=== PATIENT | male | born 1965 | race Caucasian/White ===

== ENCOUNTER 2019-04-03 06:28 | Inpatient (IN) | payer BC ==
[~2019-04-03] VITALS: Ht 182.9 cm; Wt 145.1 kg
--- OUTSIDE RECORDS SUMMARY | 2019-04-03 06:32 | XMS REPORT | Summary of Care ---
Author Author [facility] - Health Organization [facility] - Health Address Unknown Phone Unavailable Care Team Providers Care Pipe [address] Service Name Role Phone Eusebio Burch Catrachita PCP Encounter Details Care Team Description Date Type Department Doctor Unassigned, [place] [address] [place] [address] 03/19/2019 Orders Only [facility] [address] [place] [address] Allergies Not on Filedocumented as of this encounter (statuses as of 03/19/2019) Medications Not on filedocumented as of this encounter (statuses as of 03/19/2019) Active Problems Not on filedocumented as of this encounter (statuses as of 03/19/2019) Social History Date Tobacco Use Types Packs/Day Years Used Never Assessed Sex Assigned at Date Recorded Not on file Industry Job Start Date Occupation Not on file Not on file Not on file Travel End Travel History Travel Start No recent travel history available. documented as of this encounter Last Filed Vital Signs Not on filedocumented in this encounter Plan of Treatment Care Team Description Date Type Specialty Latosha Sullivan MD [address] [place] [id number] Arrived 03/19/2019 Office Visit Endocrinology Diabetes & Metabolism Health Maintenance Due Date Last Done Comments HEPATITIS C (HCV) SCREEN 1965 DTaP,Tdap,and Td Vaccines 1984 (1 - Tdap) COLONOSCOPY 2015 Zoster Recombinant 2015 Vaccine (SHINGRIX) (1 of 2) INFLUENZA VACCINE (#1) 2019 PNEUMOCOCCAL 0-64 YEARS Aged Out No longer eligible based COMBINED SERIES on patient's age to complete this topic documented as of this encounter Procedures Comments Procedure Name Priority Date/Time Associated Diagnosis CONSENT/REFUSAL FOR Routine 03/19/2019 DIAGNOSIS AND TREATMENT 1:51 PM CDT ASSIGNMENT OF BENEFITS Routine 03/19/2019 1:51 PM CDT documented in this encounter Results Not on filedocumented in this encounter Insurance Type Payer Benefit Subscriber ID Effective Phone Address Plan / Dates Group PPO/POS BC[place] OF [place] BCBS OF [id number] 2013-P [phone] [facility] - [facility] [id number] OUT OF [facility] [id number] documented as of this encounter
--- OUTSIDE RECORDS SUMMARY | 2019-04-03 06:32 | XMS REPORT | Summary of Care ---
Author Author [facility] - Health Organization [facility] - Health Address Unknown Phone Unavailable Care Team Providers Care Lead Ramp Agent Name Role Phone Eusebio Burch PCP Reason for Visit * Reason Comments Forms [facility] Encounter Details Care Team Description Date Type Department Latosha Sullivan MD [address] [place] [phone] Forms ([email or web address]) 03/20/2019 Telephone [facility], [address] [phone] Allergies No Known Allergiesdocumented as of this encounter (statuses as of 03/20/2019) Medications End Date Status Medication Sig Dispensed Refills Start Date Active blood sugar diagnostic Use as 0 (FREESTYLE TEST STRIPS IN instructed 5 VITRO) Active clotrimazole 1 % topical Apply q12 hrs 0 cream On rash 5 Active TB syringe 1 ml (B-D Use as 0 SYRINGE SLIP TIP 1CC) 1 isntructed 5 mL injection Active insulin degludec (TRESIBA inject 60 20 Syringe 1 FLEXTOUCH U-200) 200 Units under 9 unit/mL (3 mL) the skin at InPnIndications: Type 2 bedtime. diabetes mellitus with hyperglycemia, with long-term current use of insulin Active insulin aspart U-100 inject 20 20 Syringe 1 (NOVOLOG FLEXPEN U-100 Units under 9 INSULIN) 100 unit/mL (3 the skin 3 mL) injectionIndications: (three) times Type 2 diabetes mellitus daily before with hyperglycemia, with meals. long-term current use of insulin Active Fenofibrate 160 mg Take 1 tablet 90 tablet 1 tabletIndications: Mixed by mouth at 9 hyperlipidemia bedtime. documented as of this encounter (statuses as of 03/20/2019) Active Problems Not on filedocumented as of this encounter (statuses as of 03/20/2019) Social History Date Tobacco Use Types Packs/Day Years Used Current Every Day Smoker Smokeless Tobacco: Never Used Comments: VAPE Drinks/Week oz/Week Comments Alcohol Use Not Currently Sex Assigned at Date Recorded Not on file Industry Job Start Date Occupation Not on file Not on file Not on file Travel End Travel History Travel Start No recent travel history available. documented as of this encounter Last Filed Vital Signs Not on filedocumented in this encounter Plan of Treatment Health Maintenance Due Date Last Done Comments HEPATITIS C (HCV) SCREEN 1965 PNEUMOCOCCAL 0-64 YEARS 1971 COMBINED SERIES (1 of 1 - PPSV23) CREATININE (SERUM) 1975 EYE EXAM 1975 LDL-C 1975 URINE MICROALBUMIN 1975 FOOT EXAM 1983 DTaP,Tdap,and Td Vaccines 1984 (1 - Tdap) COLONOSCOPY 2015 Zoster Recombinant 2015 Vaccine (SHINGRIX) (1 of 2) INFLUENZA VACCINE (#1) 2019 09/04/2012 HgA1C 09/19/2019 03/19/2019 documented as of this encounter Results Not on filedocumented in this encounter Insurance Type Payer Benefit Subscriber ID Effective Phone Address Plan / Dates Group PPO/POS BCBS OF [place] BCBS OF [id number] 2013-P [phone] P O [facility] [id number] OUT OF [facility] [id number] documented as of this encounter
--- OUTSIDE RECORDS SUMMARY | 2019-04-03 06:32 | XMS REPORT | Summary of Care ---
Author Author [facility] - Health Organization [facility] - Health Address Unknown Phone Unavailable Care Team Providers Care Supervisor Record Press Name Role Phone Eusebio Burch PCP Reason for Visit * Reason Comments Other Encounter Details Care Team Description Date Type Department Latosha Sullivan MD [address] [place] [address] [phone] Draw, [facility] Lab Type 2 diabetes mellitus with hyperglycemia, with long-term current use of insulin 03/19/2019 Online Marketing Coordinator [facility] Clinical Visit Laboratory, [address] [phone] Allergies No Known Allergiesdocumented as of this encounter (statuses as of 03/19/2019) Medications End Date Status Medication Sig Dispensed [...] filedocumented in this encounter Plan of Treatment Date/Time Name Type Priority Associated Diagnoses 03/19/2019 3:06 PM CDT GLYCOSYLATED HEMOGLOBIN LAB Routine Type 2 diabetes mellitus (A1C) with hyperglycemia, with long-term current use of insulin Health Maintenance Due Date Last Done Comments HEPATITIS C (HCV) SCREEN 1965 DTaP,Tdap,and Td Vaccines 1984 (1 - Tdap) COLONOSCOPY 2015 Zoster Recombinant 2015 Vaccine (SHINGRIX) (1 of 2) INFLUENZA VACCINE (#1) 2019 PNEUMOCOCCAL 0-64 YEARS Aged Out No longer eligible based COMBINED SERIES on patient's age to complete this topic documented as of this encounter Results Not on filedocumented in this encounter Visit Diagnoses Diagnosis Type 2 diabetes mellitus with hyperglycemia, with long-term current use of insulin documented in this encounter Insurance Type Payer Benefit Subscriber ID Effective Phone Address Plan / Dates Group PPO/POS BC[place] BCBS OF [id number] 2013-P [phone] [facility] [id number] OUT OF [facility] [id number] documented as of this encounter
--- OUTSIDE RECORDS SUMMARY | 2019-04-03 06:32 | XMS REPORT ---
Author Author [facility] Address Unknown Phone Unavailable Care Team Providers Care Field Checker Name Role Phone Unavailable Unavailable Problems This patient has no known problems. Allergies, Adverse Reactions, Alerts This patient has no known allergies or adverse reactions. Medications This patient has no known medications.
--- OUTSIDE RECORDS SUMMARY | 2019-04-03 06:32 | XMS REPORT | Summary of Care ---
Author Author [facility] - Health Organization [facility] - Health Address Unknown Phone Unavailable Care Team Providers Care Chief Deputy Sheriff Name Role Phone uEsebio Burch PCP Reason for Visit * Reason Comments LAB WORK Encounter Details Care Team Description Date Type Department Latosha Sullivan MD [address] [place] [address] [phone] Draw, [facility] Type 2 diabetes mellitus with hyperglycemia, with long-term current use of insulin 03/19/2019 Director Of Alumni Relations [facility] Clinical Visit Laboratory, [address] [phone] Allergies No Known Allergiesdocumented as [...] Done Comments HEPATITIS C (HCV) SCREEN 1965 HgA1C 1966 PNEUMOCOCCAL 0-64 YEARS 1971 COMBINED SERIES (1 of 1 - PPSV23) CREATININE (SERUM) 1975 EYE EXAM 1975 LDL-C 1975 URINE MICROALBUMIN 1975 FOOT EXAM 1983 DTaP,Tdap,and Td Vaccines 1984 (1 - Tdap) COLONOSCOPY 2015 Zoster Recombinant 2015 Vaccine (SHINGRIX) (1 of 2) INFLUENZA VACCINE (#1) 2019 documented as of this encounter Results Not on filedocumented in this encounter Visit Diagnoses Diagnosis Type 2 diabetes mellitus with hyperglycemia, with long-term current use of insulin documented in this encounter Insurance Type Payer Benefit Subscriber ID Effective Phone Address Plan / Dates Group PPO/POS BCBS OF [place] BCBS OF [id number] 2013-P [phone] [address] [place] - [facility] [id number] OUT OF [facility] [id number] documented as of this encounter
--- OUTSIDE RECORDS SUMMARY | 2019-04-03 06:32 | XMS REPORT | Summary of Care ---
Author Author [facility] - Health Organization [facility] - Health Address Unknown Phone Unavailable Care Team Providers Care Clinical Trial Coordinator Name Role Phone Eusebio Burch PCP Reason for Visit * Reason Comments New Patient Forms Encounter Details Care Team Description Date Type Department Latosha Sullivan MD [address] [place] [address] [phone] Type 2 diabetes mellitus with hyperglycemia, with long-term current use of insulin (Primary Dx); Mixed hyperlipidemia 03/19/2019 Office Visit [facility] Endocrinology, [address] [phone] Allergies No Known Allergiesdocumented as [...] Mixed by mouth at 9 hyperlipidemia bedtime. 03/19/2019 Discontinued Insulin Syringe-Needle USE 0 U-100 0.3 mL 31 gauge x ISNTRUCTED 5 12/14" Syrg 03/19/2019 Discontinued Fenofibrate 160 mg tablet TAKE 1 TABLET 0 BY MOUTH WITH 6 FOOD ONCE DAILY 03/19/2019 Discontinued insulin NPH (HUMULIN N 60 units in 0 NPH U-100 INSULIN) 100 AM and 20 6 unit/mL injection units at bedtime. Give him relion, humulin, novolin or whatever is cheapest NPH insulin 03/19/2019 Discontinued NOVOLIN R REGULAR U-100 INJECT 3-10 0 INSULN 100 unit/mL UNITS PER 9 solution SLIDING SCALE NEEDED 03/19/2019 Discontinued lisinopril 2.5 mg tablet Take 2.5 mg 0 by mouth. 5 documented as of this encounter (statuses as [...] of this encounter Last Filed Vital Signs Reading Time Taken Comments Vital Sign 124/86 03/19/2019 2:05 PM CDT Blood Pressure 96 03/19/2019 2:05 PM CDT Pulse 37 C (98.6 F) 03/19/2019 2:05 PM CDT Temperature - - Respiratory Rate - - Oxygen Saturation - - Inhaled Oxygen Concentration 154.1 kg (339 lb 12.8 oz) 03/19/2019 2:05 PM CDT Weight 182.9 cm (6') 03/19/2019 2:05 PM CDT Height 46.09 03/19/2019 2:05 PM CDT Body Mass Index documented in this encounter Progress Notes * Latosha Sullivan MD - 03/19/2019 2:00 PM CDT Cc: Chief Complaint Patient presents with New Patient Forms Janice Day is a 53 year old male. 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 Patient want to control his hyperglycemia, feel good otherwise, compliant with d iet. Allergies Janice has No Known Allergies. Medications Outpatient Medications Prior to Visit Medication Sig Dispense Refill blood sugar diagnostic (FREESTYLE TEST STRIPS IN VITRO) Use as instructed clotrimazole 1 % topical cream Apply q12 hrs On rash TB syringe 1 ml (B-D SYRINGE SLIP TIP 1CC) 1 mL injection Use as isntructed Fenofibrate 160 mg tablet TAKE 1 TABLET BY MOUTH WITH FOOD ONCE DAILY insulin NPH (HUMULIN N NPH U-100 INSULIN) 100 unit/mL injection 60 units in AM and 20 units at bedtime. Give him relion, humulin, novolin or whatever is ch eapest NPH insulin Insulin Syringe-Needle U-100 0.3 mL 31 gauge x 5/16" Syrg USE ISNTRUCTED lisinopril 2.5 mg tablet Take 2.5 mg by mouth. NOVOLIN R REGULAR U-100 INSULN 100 unit/mL solution INJECT 3-10 UNITS PER SL IDING SCALE NEEDED 0 No facility-administered medications prior to visit. Histories History reviewed. No pertinent past medical history. History reviewed. No pertinent surgical history. Social History Socioeconomic History Marital status: Spouse name: Not on file Number of children: Not on file Years of education: Not on file Highest education level: Not on file Occupational History Not on file Social Needs Financial resource strain: Not on file Food insecurity: Worry: Not on file Inability: Not on file Transportation needs: Medical: Not on file Non-medical: Not on file Tobacco Use Smoking status: Current Every Day Smoker Smokeless tobacco: Never Used Tobacco comment: VAPE Substance and Sexual Activity Alcohol use: Not Currently Drug use: Never Sexual activity: Not on file Lifestyle Physical activity: Days per week: Not on file Minutes per session: Not on file Stress: Not on file Relationships Social connections: Talks on phone: Not on file Gets together: Not on file Attends taoist service: Not on file Active member of club or organization: Not on file Attends meetings of clubs or organizations: Not on file Relationship status: Not on file Intimate partner violence: Fear of current or ex partner: Not on file Emotionally abused: Not on file Physically abused: Not on file Forced sexual activity: Not on file Other Topics Concern Not on file Social History Narrative Not on file History reviewed. No pertinent family history. Review of Systems Constitutional: Positive for weight gain. HENT: Negative. Respiratory: Negative. Cardiovascular: Negative. Gastrointestinal: Negative. Musculoskeletal: Negative. Neurological: Negative. Psychiatric/Behavioral: Negative. Endocrine: Positive for polydipsia, polyphagia and weight gain. Vital Signs BP 124/86 | Pulse 96 | Temp 37 C (98.6 F) (Oral) | Ht 6' (1.829 m) | Wt 339 lb 12.8 oz (154.1 kg) | BMI 46.09 kg/m Physical Exam Constitutional: He is oriented to person, place, and time. He appears well-devel oped and well-nourished. Eyes: Pupils are equal, round, and reactive to light. Conjunctivae and EOM are n ormal. Left eye exhibits no discharge. No scleral icterus. Neck: Normal range of motion. Neck supple. No JVD present. No tracheal deviation present. No thyromegaly present. Cardiovascular: Normal rate, regular rhythm, normal heart sounds and intact dist al pulses. Exam reveals no gallop and no friction rub. No murmur heard. Pulmonary/Chest: Effort normal and breath sounds normal. No respiratory distress . He has no wheezes. He has no rales. He exhibits no tenderness. Abdominal: Soft. Bowel sounds are normal. He exhibits no distension and no mass. There is no tenderness. There is no rebound and no guarding. No hernia. Musculoskeletal: Normal range of motion. He exhibits no edema, tenderness or def ormity. Lymphadenopathy: He has no cervical adenopathy. Neurological: He is alert and oriented to person, place, and time. He displays n ormal reflexes. No cranial nerve deficit or sensory deficit. He exhibits normal muscle tone. Coordination normal. Skin: Skin is warm and dry. Capillary refill takes less than 2 seconds. No rash noted. No erythema. No pallor. Psychiatric: He has a normal mood and affect. His behavior is normal. Judgment a nd thought content normal. Assessment/Plan Metri was seen today for new patient and forms. Diagnoses and all orders for this visit: Type 2 diabetes mellitus with hyperglycemia, with long-term current use of insul in - insulin degludec (TRESIBA FLEXTOUCH U-200) 200 unit/mL (3 mL) InPn; inject 60 Units under the skin at bedtime. - insulin aspart U-100 (NOVOLOG FLEXPEN U-100 INSULIN) 100 unit/mL (3 mL) in jection; inject 20 Units under the skin 3 (three) times daily before meals. - GLYCOSYLATED HEMOGLOBIN (A1C); Future Mixed hyperlipidemia - Fenofibrate 160 mg tablet; Take 1 tablet by mouth at bedtime. Patient insulin changed, will AIC as required, it shoud improve once his start n ew insulins. documented in this encounter Plan of Treatment Care Team Description Date Type Specialty Latosha Sullivan MD [address] [place] [address] [phone] Draw, Cl[facility] Lab Type 2 diabetes mellitus with hyperglycemia, with long-term current use of insulin 03/19/2019 Refrigeration [facility] Visit Order Schedule Name Type Priority Associated Diagnoses Expected: 03/19/2019, Expires: 04/19/2019 GLYCOSYLATED HEMOGLOBIN LAB Routine Type 2 diabetes [...] hyperglycemia, with long-term current use of insulin - Primary Mixed hyperlipidemia documented in this encounter Insurance Type Payer Benefit Subscriber ID Effective Phone Address Plan / Dates Group PPO/POS BCBS OF [place] BCBS OF [id number] 2013-P [phone] P O [facility] [id number] OUT OF [place] [id number] documented as of this encounter
--- NOTE | 2019-04-03 06:48 | NUR ---
REPORT TO PRINCE WALKER
--- NOTE | 2019-04-03 06:48 | NUR ---
RECEIVED REPORT FROM MULUGETA MAILING MANAGERPAID INTERNSHIP NURSE.
[2019-04-03 06:52] LABS: BASOPHILS % 0.4 % (0.0-1.0); EOSINOPHILS # (AUTO) 0.1 (0.0-0.4); EOSINOPHILS % 0.6 % (0.0-6.0); HEMATOCRIT 42.7 % (38.2-49.6); HEMOGLOBIN 14.8 g/dL (14.0-18.0); LYMPHOCYTES # (AUTO) 1.4 (1.0-3.2); LYMPHOCYTES % 12.5 % (18.0-39.1); MEAN CORPUSCULAR HEMOGLOBIN 29.4 pg (28-32); MEAN CORPUSCULAR HGB CONC 34.7 g/dL (31-35); MEAN CORPUSCULAR VOLUME 84.7 fL (81-99); MONOCYTES # (AUTO) 0.8 (0.2-0.8); MONOCYTES % 6.9 % (4.4-11.3); NEUTROPHILS # (AUTO) 8.9 (2.1-6.9); NEUTROPHILS % 79.2 % (38.7-80.0); PLATELET COUNT 244 x10e3/uL (140-360); RED BLOOD COUNT 5.04 x10e6/uL (4.3-5.7); RED CELL DISTRIBUTION WIDTH 12.2 % (11.7-14.4)
[2019-04-03 07:05] LABS: ALANINE AMINOTRANSFERASE 13 IU/L (0-55); ALBUMIN 3.6 g/dL (3.5-5.0); ALBUMIN/GLOBULIN RATIO 0.9 (0.8-2.0); ALKALINE PHOSPHATASE 107 IU/L (40-150); ANION GAP 14.8 mmol/L (8-16); BLOOD UREA NITROGEN 13 mg/dL (7-26); BUN/CREATININE RATIO 12 (6-25); CALCIUM 9.6 mg/dL (8.4-10.2); CARBON DIOXIDE 24 mmol/L (22-29); CHLORIDE 98 mmol/L (98-107); CREATINE KINASE 226 IU/L (30-200); CREATININE, SERUM 1.11 mg/dL (0.72-1.25); EST GLOMERULAR FILTRATION RATE > 60 ML/MIN (60-); GLUCOSE 293 mg/dL (74-118); POTASSIUM 3.8 mmol/L (3.5-5.1); SODIUM 133 mmol/L (136-145)
[2019-04-03 07:07] LABS: INR 0.87; PROTHROMBIN TIME 12.3 seconds (11.9-14.5)
[2019-04-03 07:08] LABS: PARTIAL THROMBOPLASTIN TIME 27.5 seconds (23.8-35.5)
--- NOTE | 2019-04-03 08:32 | Diagnostic Imaging Report ---
EXAM: CHEST 2 VIEWS DATE: 04/03/2019 6:33 AM INDICATION: Chest pain COMPARISON: None FINDINGS: The trachea is midline. The lungs are symmetrically expanded without evidence for large focal consolidation, pneumothorax, or significant pleural effusion. The cardiomediastinal silhouette and pulmonary vasculature are within normal limits. No acute osseous abnormalities identified. The soft tissues are unremarkable. IMPRESSION: No acute cardiopulmonary process identified. Signed by: Dr. Richard Win MD on 04/03/2019 8:28 AM
[2019-04-03] MEDS ORDERED: LIDOCAINE 5% PATCH TP ONE ×2 (08:58→09:30)
[2019-04-03] MEDS ORDERED: NITROGLYCERIN 2% OINT 1 GM PKT ONE (09:02)
[2019-04-03] MEDS ORDERED: ONDANSETRON HCL INJ 2MG/ML 2ML 2 MG/ML VIAL ONE (09:02)
[2019-04-03] MEDS ORDERED: MORPHINE SULFATE INJ 4 MG/ML INJ 1ML ONE (09:02)
[2019-04-03] MEDS ORDERED: ONDANSETRON HCL INJ 2MG/ML 2ML 2 MG/ML VIAL IV STA (09:07)
--- NOTE | 2019-04-03 09:08 | Diagnostic Imaging Report ---
CT of the chest, PE protocol, with contrast. History: Chest pain. Comparison: None available. Technique: Multidetector thin collimation CT scanning of the chest was performed from the level of the apices to the upper abdomen during the pulmonary arterial phase, after intravenous administration of contrast. Coronal and sagittal MIP reformations were obtained. RADIATION DOSE: Total DLP: 618.60 mGy*cm Dose modulation, iterative reconstruction, and/or weight based adjustment of the mA/kV was utilized to reduce the radiation dose to as low as reasonably achievable. FINDINGS: There is adequate opacification of the pulmonary arteries to level the proximal segmental arteries. The more distal segmental and subsegmental arteries are not well opacified and suboptimally evaluated. The pulmonary arteries distribute normally. There is no evidence of a filling defect the level of the proximal segmental arteries. The visualized structures within the base of the neck demonstrate no significant abnormalities. The thoracic aorta is normal in course and caliber. The heart is not enlarged. No abnormal pericardial fluid is present. There is no abnormal axillary, mediastinal, or hilar lymph node enlargement. The trachea and proximal airways are patent. There is a 1.4 x 1.3 x 1.3 cm nodular opacity identified within the left lower lobe abutting the pleura (image 69). A smaller 0.9 cm nodular opacity is identified within the left lung base. Given multifocal appearance, pulmonary infarcts are thought to be less likely. There is no evidence for consolidation, pneumothorax, or pleural effusion. Limited views of the upper abdomen demonstrate no significant abnormalities. The osseous structures demonstrate no evidence for acute fracture or destructive process. The extrathoracic soft tissues are unremarkable. IMPRESSION: 1. No evidence of pulmonary thromboembolism to the level proximal segmental arteries. 2. 1.4 cm nodular opacity identified within the peripheral left lower lobe. Additional subcentimeter nodular opacity identified within the left lung base. Recommend short-term CT follow-up in 3 months. Alternatively, further characterization with PET/CT or direct sampling could be considered. Signed by: Dr. Richard Win MD on 04/03/2019 9:05 AM
[2019-04-03] MEDS ORDERED: MORPHINE SULFATE INJ 4 MG/ML INJ 1ML IV PRN (09:15)
[2019-04-03] MEDS ORDERED: NITROGLYCERIN 2% OINT 1 GM PKT TOP ONE (09:15)
[2019-04-03] MEDS ORDERED: LIDOPATCH1 EACH TOP (09:53)
[2019-04-03] MEDS ORDERED: SODIUM CHLORIDE FLUSH 10 ML SYR INJ PRN (10:15)
[2019-04-03] MEDS ORDERED: ASPIRIN 81 MG CHEW TAB PO ONE (10:30)
[2019-04-03] MEDS ORDERED: DEXTROSE 50% SYRINGE 50 ML IV PRN ×2 (10:45→11:00)
--- NOTE | 2019-04-03 11:30 | NUR ---
TORSTEN AT BEDSIDE FOR ECHO.
--- NOTE | 2019-04-03 11:47 | History and Physical ---
CHIEF COMPLAINT: Chest pain on the left side. HISTORY OF PRESENT ILLNESS: Mr. Day is a 53-year-old male, smoker, who came in with severe left-sided chest pain, 10/10 in intensity. He does not have any relationship to exertion, however, get worse when he takes a deep breath. It suddenly started yesterday and progressively got worse overnight. He denies any complaints of nausea, vomiting, or diarrhea. REVIEW OF SYSTEMS: GENERAL: Denies any fever or chills. HEAD: Denies any head trauma. ENT: Denies any earache. CVS: Denies any severe chest pain. RESPIRATORY: Denies any shortness of breath. GI: Denies any nausea, vomiting. The rest of the review of systems are negative except as in HPI. PAST MEDICAL HISTORY: Hypertension, diabetes. PAST SURGICAL HISTORY: Pilonidal sinus surgery. FAMILY AND SOCIAL HISTORY: He has been a smoker for 30 years. Denies any alcohol use. PHYSICAL EXAMINATION: VITAL SIGNS: Temperature 99.2, pulse of 103, blood pressure 157/93. HEENT: Head is atraumatic, normocephalic. NECK: Supple. CHEST: Clear to auscultation bilaterally. No wheezing. HEART: S1, S2 audible. ABDOMEN: Soft. EXTREMITIES: No pedal edema. NEUROLOGIC: Awake, alert. No focal neurologic deficits. LABORATORY DATA: Reviewed. Troponins have been negative. CTA of the chest was done in the emergency room, which is showing no PE and no acute finding. There are two nodules which are 1.4 cm. I have reviewed the images and they will need further workup. This was explained to the patient. ASSESSMENT: Mr. Day is a 53-year-old male, admitted with chest pain, pleuritic. No CT evidence of pulmonary embolism. Etiology of the chest pain is not very clear, could be costochondritis. He is denying any trauma as well. PLAN: 1. I will start the patient on IV steroids for possible inflammatory pain. Rare cases it could be neuropathic pain, but the sudden onset goes against the fact. 2. Lung nodules are incidental finding, will need further workup as an outpatient. 3. Cardiology consultation for chest pain. 4. Resume home medications. MD IVAN Meyer/LE /[id number]
[2019-04-03] MEDS ORDERED: FENOFIBRATE160 MG PO (12:00)
[2019-04-03] MEDS ORDERED: TRESIBA SQ (12:00)
[2019-04-03] MEDS ORDERED: NOVOLOG100 UNITS1 SQ (12:00)
[2019-04-03] MEDS: ALBUTEROL/IPRATROPIUM 3 ML NEB NEB SCH ×2 (12:56→19:00)
[2019-04-03 13:38] LABS: CHOL/HDL RATIO 5.7 (3.9-4.7)
[2019-04-03] MEDS: KETOROLAC TROMETHAMINE 30 MG/ML VIAL IV PRN ×2 (13:46→19:46)
--- NOTE | 2019-04-03 13:47 | NUR ---
Pt report given to PRINCE Reardon Pt hemodynamically stable, pain controlled at time of transfer
[2019-04-03] MEDS ORDERED: METHYLPREDNISOLONE SOD SUCC 40 MG/ML VIAL 1ML IV SCH (14:00)
[2019-04-03] MEDS ORDERED: SODIUM CHLORIDE 0.9% 50ML 50 ML ONE (14:12)
[2019-04-03] MEDS ORDERED: IOPAMIDOL 370 MG/ML 200 ML INFUS..BTL INJ ONE (14:13)
--- NOTE | 2019-04-03 14:23 | NUR ---
PT TO THE FLOOR AT THIS TIME. PT DENIES NEEDS AT THIS TIME.
--- NOTE | 2019-04-03 15:00 | NUR ---
Received patient, lying in bed with eyes open. Respiration even and unlabored without SOB. Call light in reach.
[2019-04-03 15:08] VITALS: BP 119/63
[2019-04-03] MEDS: NITROGLYCERIN 0.4 MG SUBL SL PRN (15:19)
[2019-04-03 15:30] LABS: CREATINE KINASE MB 0.3 ng/mL (0-5.0)
[2019-04-03] MEDS: HYDROMORPHONE 1MG/1ML INJ IV PRN ×2 (15:34→21:35)
[2019-04-03 15:53] VITALS: BP 119/63
[2019-04-03] MEDS: IBUPROFEN 600 MG TAB PO SCH ×2 (15:54→21:23)
[2019-04-03 15:58] VITALS: BP 119/63
[2019-04-03] MEDS: COLCHICINE 0.6 MG TAB PO SCH ×2 (16:22→21:23)
[2019-04-03] MEDS: INSULIN ASPART 70/30 100 UNITS/ML VIAL SC SCH (16:44)
--- NOTE | 2019-04-03 18:33 | NUR ---
Patient lying in bed with eyes open. Respiration even and unlabored without SOB. Call light in reach.
--- NOTE | 2019-04-03 19:10 | NUR ---
REPORT TAKEN FRO MORNING RN.PATIENT IS LYEING IN THE BED.PAIN VOICED 03/10.
[2019-04-03 20:00] VITALS: BP 159/80
[2019-04-03] MEDS: INSULIN GLARGINE 100 UNITS/ML VIAL SQ SCH (20:05)
[2019-04-03 20:39] VITALS: BP 159/80
--- NOTE | 2019-04-03 21:50 | NUR ---
VOICED SIVERE PAIN.SPOKE TO DR.FAISAL SHERIDAN.ORDERED DILAUDID 1MG Q4H PRN.
[2019-04-04] VITALS (9 sets, daily range): BP systolic 128–181; BP diastolic 57–89
[2019-04-04] MEDS: ALBUTEROL/IPRATROPIUM 3 ML NEB NEB SCH ×4 (00:16→19:00)
[2019-04-04] MEDS: HYDROMORPHONE 1MG/1ML INJ IV PRN ×5 (01:30→20:24)
[2019-04-04] MEDS: KETOROLAC TROMETHAMINE 30 MG/ML VIAL IV PRN ×2 (01:58→08:14)
[2019-04-04 06:25] LABS: CHOL/HDL RATIO 4.9 (3.9-4.7)
--- NOTE | 2019-04-04 07:00 | NUR ---
Bed side shift report given to the oncoming RN.stable condition.
[2019-04-04 07:03] LABS: CREATINE KINASE 116 IU/L (30-200)
[2019-04-04] MEDS: INSULIN ASPART 70/30 100 UNITS/ML VIAL SC SCH ×3 (08:15→17:30)
[2019-04-04] MEDS: ASPIRIN 81 MG ENTERIC COATED PO SCH (08:30)
[2019-04-04] MEDS: COLCHICINE 0.6 MG TAB PO SCH ×3 (08:30→21:06)
[2019-04-04] MEDS: FENOFIBRATE 160 MG TABLET PO SCH (08:30)
[2019-04-04] MEDS: IBUPROFEN 600 MG TAB PO SCH ×3 (09:00→21:06)
--- NOTE | 2019-04-04 10:02 | NUR ---
LUCA INTO SEE PT, DISCUSSED POC, ORDERS NOTED
[2019-04-04] MEDS: HYDROCODONE/APAP 5MG-325MG TAB PO PRN ×2 (10:09→22:12)
--- NOTE | 2019-04-04 12:20 | NUR ---
MEDICATED PER MD ORDER, PT STATES, "FEELS STABBING IN HIS CHEST" THAT "PILL DIDN'T LAST", PT EDUCATED TO NOT GET OOB WITHOUT CALLING FOR ASSISTANCE, PT VERBALIZED UNDERSTANDING, CALL LIGHT WITHIN REACH
--- NOTE | 2019-04-04 18:00 | Consultation ---
DATE OF CONSULTATION: 04/03/2019 Cardiology Consultation INDICATION: Chest pain. HISTORY OF PRESENT ILLNESS: Mr. Day is a 53-year-old gentleman with sudden onset of substernal chest pain, worsened inspiration and moving, worse when he moves from side to side, nonexertional. PAST MEDICAL HISTORY: Hypertension. SOCIAL HISTORY: The patient does not smoke or drink. REVIEW OF SYSTEMS: Negative. PHYSICAL EXAMINATION: VITAL SIGNS: Afebrile, heart rate 110, and blood pressure 108/70. CARDIOVASCULAR: Regular rhythm, tachycardic. LUNGS: Clear to auscultation bilaterally. ABDOMEN: Soft. Bowel sounds are heard adequately. DIAGNOSTIC DATA: Electrocardiogram shows sinus tachycardia, nonspecific ST changes. Cardiac troponin is negative. ASSESSMENT: Acute pericarditis. RECOMMENDATIONS: Pain control with colchicine and nonsteroidal anti-inflammatory drugs. Echocardiogram will be obtained. CT scan was reviewed. I thank, Dr. Flores, for this consultation. MD PILLO Fam/LE /[id number]
--- NOTE | 2019-04-04 18:45 | NUR ---
Received bedside report from day shift RN. The patient is laying on the bed with some mild chest pain. Bed height low, side rails up x2, wheels lock and call light within reach.
[2019-04-04] MEDS ORDERED: VANCOMYCIN 1GM/NS 250 ML 250 ML IV ONE (20:00)
[2019-04-04] MEDS ORDERED: SODIUM CHLORIDE 0.9% 250ML 250 ML ONE (20:54)
[2019-04-04] MEDS: ONDANSETRON HCL INJ 2MG/ML 2ML 2 MG/ML VIAL IV PRN (20:55)
[2019-04-04] MEDS: INSULIN GLARGINE 100 UNITS/ML VIAL SQ SCH (21:07)
[2019-04-04] MEDS: PIPER-TAZ 3.375 GM 50 ML IV SCH (22:53)
[2019-04-04] MEDS: NITROGLYCERIN 0.4 MG SUBL SL PRN ×2 (23:10→23:18)
[2019-04-05] VITALS (8 sets, daily range): BP systolic 128–171; BP diastolic 57–89
[2019-04-05] MEDS: HYDROMORPHONE 1MG/1ML INJ IV PRN ×6 (00:05→20:23)
[2019-04-05] MEDS: ALBUTEROL/IPRATROPIUM 3 ML NEB NEB SCH ×4 (01:00→19:40)
--- NOTE | 2019-04-05 01:33 | Consultation ---
DATE OF CONSULTATION: 04/04/2019 Cardiology Consultation HISTORY OF PRESENT ILLNESS: This is a 53-year-old man with a history of obesity, hypertension, diabetes mellitus, tobacco use, who presented to the emergency department with left-sided chest discomfort. The patient reports left-sided chest pressure, moderate to severe in intensity, not exacerbated with exertion, worse with movement and deep inspiration, no radiation, no other exacerbating or relieving factors. No prior cardiac events. The patient was found to have negative troponins x3. REVIEW OF SYSTEMS: Twelve-point review of system was conducted, is negative except as stated above in the HPI. PAST MEDICAL HISTORY: As stated above in the HPI. PAST SURGICAL HISTORY: None recent. PAST FAMILY HISTORY: No premature coronary artery disease or sudden cardiac . SOCIAL HISTORY: Tobacco use. ALLERGIES: NO KNOWN DRUG ALLERGIES. MEDICATIONS: See medications reconciliation form. PHYSICAL EXAMINATION: VITAL SIGNS: Temperature is 101.6, heart rate is 97, respirations are 22, blood pressure is 145/85, ox saturation is 94% on 2 L nasal cannula. GENERAL: Well appearing, well built, in no apparent distress. CARDIOVASCULAR: Regular rate and rhythm. LUNGS: Clear to auscultation. ABDOMEN: Soft, nontender, nondistended. EXTREMITIES: No edema. VASCULAR: 2+ pulses. SKIN: Warm, dry, intact. NEUROLOGIC: No focal deficits noted. LABORATORY DATA: Reviewed; troponin is negative x3. CRP is 78, creatinine 1.1. White blood cell count is 11. Telemetry monitoring revealed sinus rhythm and sinus tachycardia. CT of the chest shows no evidence of pulmonary embolism. IMPRESSION: 1. Chest pain. 2. Obesity. 3. Tobacco use. 4. Hypertension. 5. Diabetes mellitus. 6. Fever. 7. Hyperlipidemia. RECOMMENDATIONS: The patient is ruled out for acute myocardial infarction. The patient is currently being treated for pericarditis. The patient has recurrent fever as well. Infectious workup and treatment per primary team. We will check an echocardiogram. Start statin. Reduce colchicine to b.i.d. dosing. DO SALBADOR Sauer/LE /[id number]
[2019-04-05] MEDS: HYDROCODONE/APAP 5MG-325MG TAB PO PRN ×6 (01:48→22:39)
--- NOTE | 2019-04-05 02:03 | NUR ---
Patient stated he is having difficulty breathing with NC on at 1 LPM. The patient took [place] 5 mg @ 0148. Last Dilaudid at 0005 and Nitrostat at 04/04/19 @2318. Heart rate at 93, O2 at 95% and O2 via NC at 2 LPM. Continue to monitor the patient for chest pain and VS.
[2019-04-05 02:16] LABS: CLARITY,URINE CLEAR (CLEAR); COLOR,URINE YELLOW (YELLOW); LEUKOCYTE ESTERASE ,URINE NEGATIVE (NEGATIVE); NITRITE,URINE NEGATIVE (NEGATIVE); PROTEIN,URINE DIPSTICK 1+ (NEGATIVE)
[2019-04-05 02:17] LABS: BILIRUBIN,URINE SMALL (NEGATIVE); KETONES,URINE 2+ (NEGATIVE); URINE UROBILINOGEN 1 mg/dL (0.2 - 1)
[2019-04-05 02:23] LABS: BACTERIA,URINE FEW /HPF; EPITHELIAL CELLS,URINE FEW /LPF
[2019-04-05] MEDS: ONDANSETRON HCL INJ 2MG/ML 2ML 2 MG/ML VIAL IV PRN ×5 (03:56→20:24)
--- NOTE | 2019-04-05 03:57 | NUR ---
Patient reported chest pain at 8/10 and received Dilaudid and Zofran IV. Patient also reported difficulty to breath. VS are stable.
[2019-04-05] MEDS: PIPER-TAZ 3.375 GM 50 ML IV SCH ×3 (05:24→17:59)
[2019-04-05 05:48] LABS: BASOPHILS % 0.2 % (0.0-1.0); EOSINOPHILS # (AUTO) 0.1 (0.0-0.4); EOSINOPHILS % 0.7 % (0.0-6.0); HEMATOCRIT 36.9 % (38.2-49.6); LYMPHOCYTES # (AUTO) 0.7 (1.0-3.2); LYMPHOCYTES % 4.6 % (18.0-39.1); MEAN CORPUSCULAR HEMOGLOBIN 29.9 pg (28-32); MEAN CORPUSCULAR HGB CONC 35.2 g/dL (31-35); MEAN CORPUSCULAR VOLUME 84.8 fL (81-99); MONOCYTES # (AUTO) 0.9 (0.2-0.8); MONOCYTES % 5.7 % (4.4-11.3); NEUTROPHILS # (AUTO) 13.9 (2.1-6.9); PLATELET COUNT 210 x10e3/uL (140-360); RED BLOOD COUNT 4.35 x10e6/uL (4.3-5.7); RED CELL DISTRIBUTION WIDTH 12.1 % (11.7-14.4)
[2019-04-05 05:59] LABS: ANION GAP 19.1 mmol/L (8-16); BLOOD UREA NITROGEN 14 mg/dL (7-26); BUN/CREATININE RATIO 17 (6-25); CALCIUM 9.3 mg/dL (8.4-10.2); CARBON DIOXIDE 19 mmol/L (22-29); CHLORIDE 99 mmol/L (98-107); CREATININE, SERUM 0.83 mg/dL (0.72-1.25); EST GLOMERULAR FILTRATION RATE > 60 ML/MIN (60-); GLUCOSE 244 mg/dL (74-118); POTASSIUM 4.1 mmol/L (3.5-5.1); SODIUM 133 mmol/L (136-145)
--- NOTE | 2019-04-05 06:28 | NUR ---
Patient felt sharp pain in the chest after using the restroom. The chest pain is exacerbated by any exertion.
[2019-04-05] MEDS: INSULIN ASPART 70/30 100 UNITS/ML VIAL SC SCH ×3 (08:30→16:52)
[2019-04-05] MEDS: IBUPROFEN 600 MG TAB PO SCH ×3 (08:36→20:23)
[2019-04-05] MEDS: COLCHICINE 0.6 MG TAB PO SCH ×3 (08:36→20:23)
[2019-04-05] MEDS: ASPIRIN 81 MG ENTERIC COATED PO SCH (08:36)
[2019-04-05] MEDS: FENOFIBRATE 160 MG TABLET PO SCH (08:36)
[2019-04-05] MEDS: VANCOMYCIN 1GM/NS 250 ML 250 ML IV SCH ×2 (12:44→21:50)
[2019-04-05 14:56] LABS: FREE T4 (FREE THYROXINE) 1.04 ng/dL (0.8-1.8); THYROID STIMULATING HORMONE 0.274 uIU/mL (0.350-4.940)
--- NOTE | 2019-04-05 15:00 | NUR ---
MD RIVAS INTO SEE PT, DISCUSSED POC
--- NOTE | 2019-04-05 15:23 | NUR ---
MD ZHENG INTO SEE PT, DISCUSSED POC, ORDERS NOTED
[2019-04-05] MEDS ORDERED: PNEUMOCOCCAL VACCINE POLYVALENT 23 MCG/0.5 ML VIAL IM NR (16:15)
[2019-04-05] MEDS ORDERED: INFLUENZA VIRUS VAC SPLIT INJ 0.5 ML SYR IM ONE (16:15)
--- NOTE | 2019-04-05 16:26 | Consultation ---
DATE OF CONSULTATION: 04/05/2019 Endocrine consultation This is a patient of Dr. Flores. Thank you very much for referring this patient. HISTORY OF PRESENT ILLNESS: This is a 53-year-old white male gentleman who was referred to me for evaluation of uncontrolled diabetes mellitus. The patient reportedly is a known diabetic for almost 10+ years, has multiple complications related to diabetes and severe diabetic sensory motor neuropathy. The patient was on 70/30 insulin and recently, he saw an operations consultant and he was put on a combination of the Lantus 60 at bedtime and NovoLog 20 with each meal. His blood sugars during the hospital stay have been ranging between 244 to 350. He came to the hospital with history of chest pain with a probable diagnosis of pericarditis. He also developed cellulitis of the left arm. His other medical problemsinclude history of hypertension, obstructive pulmonary disease, COPD, and hyperlipidemia. PHYSICAL EXAMINATION: GENERAL: Today, the patient is alert, awake, little bit apprehensive. He is moderately overweight. VITAL SIGNS: His heart rate is around 78, blood pressure 146/86 mmHg. HEENT: Essentially unremarkable. Thyroid is palpable. Clinically, he is near euthyroid. CHEST: Bilateral vesicular breathing. No rales. CARDIAC: First and second heart sound. There is no third or fourth heart sound. There is ejection systolic murmur grade 2/6 EXTREMITIES: The patient has evidence of diabetic sensorimotor neuropathy in both lower extremities and he has also a cellulitis of the left arm. CLINICAL IMPRESSION: Diabetes mellitus type 2, uncontrolled with complications. Chest pain, possible related to pericarditis, cellulitis of the left arm, obstructive pulmonary disease, chronic obstructive pulmonary disease, hyperlipidemia. PLAN: The plan at this time is to adjust his insulin dose. We will also do a hemoglobin A1c, thyroid function tests, and monitor his blood sugars closely. Thank you again for referring this patient. I will be following this patient with you. MD FANTASMA Shoemaker/JAVIL /[id number]
[2019-04-05] MEDS: INSULIN LISPRO 100 UNIT/1 ML 3ML VIAL SQ SCH ×2 (16:52→20:23)
[2019-04-05] MEDS ORDERED: PREGABALIN 75 MG CAP PO SCH (17:00)
--- NOTE | 2019-04-05 18:00 | NUR ---
MD ROMERO INTO SEE PT, DISCUSSED POC, OBTAINED WOUND CULTURE TO LEFT UPPER EXTREMITY, PT TOLERATED WELL, ORDERS NOTED
--- NOTE | 2019-04-05 18:45 | NUR ---
Received bedside report from RN. The patient is laying on the bed, reported some pain on the chest and is waiting for the next dose of pain medication. Bed height low, call light within reach, side rails up x2, and wheels lock.
[2019-04-05] MEDS: PREGABALIN 75 MG CAP PO SCH (20:23)
[2019-04-05] MEDS ORDERED: INSULIN GLARGINE 100 UNITS/ML VIAL SQ SCH (21:00)
--- NOTE | 2019-04-05 21:29 | Consultation ---
DATE OF CONSULTATION: 04/05/2019 Infectious Disease Consultation I would like to thank Dr. Flores for this interesting consult. HISTORY OF PRESENT ILLNESS: This is a 53-year-old male with past medical history of hypertension, hyperlipidemia, diabetes mellitus, who presented to work on the morning of Tuesday with complaints of vague chest pain on the left side. According to the patient, the pain was 10/10 and not associated with any nausea or vomiting, shortness of breath or coughing. The patient went through the ER and EKG shows sinus tachycardia. Echocardiogram was done suggesting of diastolic dysfunction. The patient was also spiking fevers, so for the concern for pericarditis, the patient was admitted into the hospital. He has been given IV vancomycin and Zosyn and steroids along with colchicine. So, Service has been asked to evaluate and give further recommendations. About 2 weeks back, the patient had blood drawn for his blood work at a local laboratory and he had left upper arm induration, which progressively got worse and now it is the size of a golf ball. The patient is complaining of severe pain on the left arm. PAST MEDICAL HISTORY: Diabetes mellitus, obesity, hypertension and hyperlipidemia. PAST SURGICAL HISTORY: Nonsignificant. MEDICATIONS: Reviewed. ALLERGIES: NO KNOWN DRUG ALLERGIES. FAMILY HISTORY: Noncontributory. SOCIAL HISTORY: The patient works in a factory. He denies smoking or drinking alcohol. No history of sexually transmitted diseases. REVIEW OF SYSTEMS: All negative except for once mentioned in HPI. PHYSICAL EXAMINATION: VITAL SIGNS: Temperature is 100, respiratory rate is 18, heart rate is 100, and blood pressure is 130/80. CHEST: Clear to auscultation bilaterally. HEART: S1, S2 normal. ABDOMEN: Soft and nontender. EXTREMITIES: Left upper arm area of induration, redness, no open wounds, about 2 x 3 inches, tender to palpation. NEUROLOGIC: Alert and oriented x3. LABORATORY DATA: Reviewed. ASSESSMENT/PLAN: This is a male 53-year-old with past medical history of obesity, hypertension, hyperlipidemia, diabetes mellitus, presents with fever and vague chest pain, which can be musculoskeletal. Fever can be due to bacteremia or cellulitis of the left upper arm and abscess of the left upper arm. I would recommend continuation of IV vancomycin and Zosyn. We will check vancomycin trough for the 4th dose and would like to keep vancomycin levels around 15. The patient needs surgical consultation for a possible I and D of the left arm abscess. We will follow the patient clinically and follow intraoperative cultures to make further recommendations. Thank you for letting me participate in the care of your patient. MD ISABELLA Joy/MODL /[id number]
[2019-04-06] VITALS (8 sets, daily range): BP systolic 124–161; BP diastolic 58–89
--- NOTE | 2019-04-06 00:24 | Consultation ---
DATE OF CONSULTATION: 04/05/2019 Surgical Consult Note CHIEF COMPLAINT: Left arm swelling with pain. HISTORY OF PRESENTING ILLNESS: Mr. Day is a reasonably healthy 53-year-old male, who presented to the hospital with chest pain, those investigations are ongoing with his primary care team. In the meantime, the patient complained of painful lump at his left forearm. He states that he had a blood draw from that site about 2 weeks ago at an outside facility and since then, he has been developing painful swelling over there. The patient denies any obvious fevers at home, denies any eating issues or other systemic symptoms. The patient has never had this problem previously. His past medical history, past surgical history, and other history is as listed with his primary care physician. REVIEW OF SYSTEMS: Overall negative otherwise. PHYSICAL EXAMINATION: GENERAL: The patient is awake, alert, and oriented. He is afebrile currently with stable vital signs and appears to be somewhat short of breath, but otherwise comfortable and in no acute distress. HEENT: Sclerae are anicteric and there is no pallor or cyanosis. NECK: Supple without any lymphadenopathy. CHEST: Clear to auscultation. Somewhat decreased breath sounds. ABDOMEN: Overall soft, nontender, and nondistended. EXTREMITIES: Examination focused to his left upper extremity shows swelling just above the elbow crease, which is showing erythema at the skin. The swelling is soft and fluctuant, measures about 3 x 5 cm in size. It is tender to touch. ASSESSMENT AND PLAN: A 53-year-old male presenting with shortness of breath and chest pain, noted to have swelling at his left upper extremity. This is most consistent with an abscess and in order to confirm this, I would like to aspirate the area with needle puncture. I explained this to the patient. Informed verbal consent was obtained from him. I then proceeded to aspirate this with an 18 gauge needle and a 10 mL syringe, the area was wiped down with an alcohol wipe and a single skin puncture was made. I immediately rafael about 3 mL of jorge pus, material from this was sent for cultures. Dry dressing was applied over the skin puncture site. The patient with an abscess at his left upper extremity, needs incision and drainage of the abscess, this will be done under general anesthesia with the patient asleep and comfortable. Discussed small risk of bleeding, persistent infection or wound healing issues. Discussed that we would need to leave the wound open to clean up and then heal up by secondary intension and wound care would be required during that time. The patient understands and is agreeable. Appropriate consent will be obtained and the patient will be taken to the surgery for this tomorrow. MD ALEN Waite/LE /[id number]
[2019-04-06] MEDS: PIPER-TAZ 3.375 GM 50 ML IV SCH ×5 (00:36→23:37)
[2019-04-06] MEDS: ALBUTEROL/IPRATROPIUM 3 ML NEB NEB SCH ×4 (01:00→20:15)
[2019-04-06] MEDS: ONDANSETRON HCL INJ 2MG/ML 2ML 2 MG/ML VIAL IV PRN ×6 (01:01→23:37)
[2019-04-06] MEDS: HYDROMORPHONE 1MG/1ML INJ IV PRN ×6 (01:01→23:37)
[2019-04-06] MEDS: HYDROCODONE/APAP 5MG-325MG TAB PO PRN ×3 (03:51→21:40)
[2019-04-06 05:54] LABS: BASOPHILS % 0.2 % (0.0-1.0); EOSINOPHILS # (AUTO) 0.4 (0.0-0.4); EOSINOPHILS % 2.9 % (0.0-6.0); HEMATOCRIT 35.6 % (38.2-49.6); HEMOGLOBIN 12.6 g/dL (14.0-18.0); LYMPHOCYTES # (AUTO) 0.8 (1.0-3.2); LYMPHOCYTES % 6.4 % (18.0-39.1); MEAN CORPUSCULAR HEMOGLOBIN 30.1 pg (28-32); MEAN CORPUSCULAR HGB CONC 35.4 g/dL (31-35); MEAN CORPUSCULAR VOLUME 85.2 fL (81-99); MONOCYTES # (AUTO) 0.9 (0.2-0.8); MONOCYTES % 7.5 % (4.4-11.3); NEUTROPHILS # (AUTO) 10.3 (2.1-6.9); NEUTROPHILS % 82.2 % (38.7-80.0); PLATELET COUNT 249 x10e3/uL (140-360); RED BLOOD COUNT 4.18 x10e6/uL (4.3-5.7); RED CELL DISTRIBUTION WIDTH 12.3 % (11.7-14.4)
[2019-04-06 06:13] LABS: ANION GAP 13.7 mmol/L (8-16); BLOOD UREA NITROGEN 15 mg/dL (7-26); BUN/CREATININE RATIO 19 (6-25); CALCIUM 9.2 mg/dL (8.4-10.2); CARBON DIOXIDE 23 mmol/L (22-29); CHLORIDE 98 mmol/L (98-107); CREATININE, SERUM 0.81 mg/dL (0.72-1.25); EST GLOMERULAR FILTRATION RATE > 60 ML/MIN (60-); GLUCOSE 244 mg/dL (74-118); POTASSIUM 3.7 mmol/L (3.5-5.1); SODIUM 131 mmol/L (136-145)
--- NOTE | 2019-04-06 07:10 | NUR ---
Dr. Flores ordered vanco trough for 04/06/19 at 0930 before the next dose of Vanc IV and stated to hold the medication if higher than 15.
--- NOTE | 2019-04-06 07:15 | NUR ---
RECEIVED PATIENT AWAKE RESTING IN BED NO SIGNS OF DISTRESS. BED LOW, WHEELS LOCKED, SIDE RAILS X2. CALL LIGHT IN REACH WILL CONTINUE TO MONITOR PATIENT.
[2019-04-06] MEDS: INSULIN ASPART 70/30 100 UNITS/ML VIAL SC SCH ×3 (07:30→16:30)
[2019-04-06] MEDS: ASPIRIN 81 MG ENTERIC COATED PO SCH (07:52)
[2019-04-06] MEDS: COLCHICINE 0.6 MG TAB PO SCH ×3 (07:53→20:48)
[2019-04-06] MEDS: IBUPROFEN 600 MG TAB PO SCH ×3 (07:54→20:49)
[2019-04-06] MEDS: FENOFIBRATE 160 MG TABLET PO SCH (07:54)
[2019-04-06] MEDS: PREGABALIN 75 MG CAP PO SCH ×2 (07:54→20:49)
[2019-04-06] MEDS: INSULIN LISPRO 100 UNIT/1 ML 3ML VIAL SQ SCH ×4 (08:11→20:50)
--- NOTE | 2019-04-06 10:00 | NUR ---
PATIENT A/O X3, EVEN RESPIRATIONS ON 2LNC. BOWEL SOUNDS ACTIVE. LEFT UPPER ARM ABSCESS. PATIENT NPO FOR I&D TODAY. RIGHT AC 18 GAUGE SL. IV INTACT AND PATENT. PRN PAIN MEDICATIONS NEEDED. NO EDEMA. PATIENT AMBULATES INDEPENDENTLY. CALL LIGHT IN REACH WILL CONTINUE TO MONITOR PATIENT.
[2019-04-06] MEDS ORDERED: LIDOCAINE HCL 1% LOCAL INJ 20 ML VIAL ONE (10:11)
[2019-04-06] MEDS ORDERED: BACITRACIN 50,000 UNIT VIAL ONE (10:42)
--- NOTE | 2019-04-06 10:46 | NUR ---
PATIENT LEFT TO OR FOR I&D AT THIS TIME.
[2019-04-06] MEDS ORDERED: BUPIVACAINE 0.5%/EPI 30 ML SDV INJ ONE (11:15)
[2019-04-06] MEDS: VANCOMYCIN HCL 1.5 GM in SODIUM CHLORIDE 0.9% 250ML 300 ML IV SCH (11:30)
[2019-04-06] MEDS ORDERED: FENTANYL CITRATE/PF 100MCG/2 ML INJ ONE (12:12)
[2019-04-06] MEDS ORDERED: HYDROMORPHONE 2MG/ML 2 MG/ML ML ONE (12:41)
--- NOTE | 2019-04-06 13:02 | NUR ---
Patient returned from surgery at this time.
--- NOTE | 2019-04-06 13:08 | NUR ---
PATIENT BACK FROM OR. NO SIGNS OF DISTRESS. VITAL SIGNS STABLE. LEFT UPPER ARM DRESSING CLEAN DRY AND INTACT. WILL CONTINUE TO MONITOR PATIENT.
[2019-04-06] MEDS ORDERED: PROPOFOL IV EMULSION 10 MG/ML 20 ML VIAL ONE (18:10)
[2019-04-06] MEDS ORDERED: ONDANSETRON HCL INJ 2MG/ML 2ML 2 MG/ML VIAL ONE (18:10)
[2019-04-06] MEDS ORDERED: LIDOCAINE HCL 2% LOCAL INJ 5 ML SDV VIAL INJ ONE (18:10)
[2019-04-06] MEDS ORDERED: SEVOFLURANE INHAL SOLN 250 ML PEN BTL ONE (18:10)
[2019-04-06] MEDS ORDERED: ACETAMINOPHEN 1000 MG/100 ML IV ONE (18:10)
[2019-04-06] MEDS ORDERED: NEOSTIGMINE 5 MG/5ML SYR ONE (18:10)
[2019-04-06] MEDS ORDERED: GLYCOPYRROLATE INJ 1MG/ 5 ML SYR ONE (18:10)
--- NOTE | 2019-04-06 18:13 | Progress Note ---
DATE: 04/06/2019 Cardiology Progress Note SUBJECTIVE: The patient still reports chest pain that is worse with deep inspiration. He underwent incision and drainage of the left upper extremity abscess today. OBJECTIVE: VITAL SIGNS: Temperature is 98.6, heart rate is 95, respirations are 20, blood pressure is 147/65, and oxygen saturation 96% on 2 liters nasal cannula. GENERAL: Well appearing, in no apparent distress. CARDIOVASCULAR: Regular rate and rhythm. Normal S1 and S2. LUNGS: Clear to auscultation. ABDOMEN: Soft, nontender, and nondistended. EXTREMITIES: Trace edema. Left upper extremity is dressed. CARDIOVASCULAR MEDICATIONS: Reviewed. TELEMETRY MONITORING: Revealed normal sinus rhythm. IMPRESSION: 1. Precordial pain. 2. Pericarditis. 3. Obesity. 4. Tobacco use. 5. Hypertension. 6. Diabetes mellitus. 7. Fever due to abscess of left upper extremity. 8. Hyperlipidemia. RECOMMENDATIONS: The patient ruled out for acute myocardial infarction. His echocardiogram showed preserved left ventricular systolic function with a trivial pericardial effusion. He has been started on anti-inflammatories for his pericarditis. Reduce colchicine to b.i.d. dosing. If the patient continues to have chest pain, likely will require stress testing. DO SALBADOR Sauer/JAVIL /[id number]
--- NOTE | 2019-04-06 18:48 | Operative Report ---
DATE OF PROCEDURE: 04/06/2019 SURGEON: Kika Schulz MD PREOPERATIVE DIAGNOSIS: Left upper extremity abscess. POSTPROCEDURE DIAGNOSIS: Left upper extremity abscess. PROCEDURE PERFORMED: Incision and drainage of left arm abscess. REASON FOR ADMISSION: This is a 53-year-old male, who was admitted a few days ago with shortness of breath and chest pain. The patient was noted at that time to have swelling at this left arm, which was subsequently diagnosed as an abscess. The patient was therefore taken to the operating room for incision and drainage of the abscess. PROCEDURE IN DETAIL: The patient was identified in the preoperative holding area and brought to the operating room. After induction of general anesthesia, the left arm was carefully prepped and draped in a standard sterile fashion. I began by making 2-3 cm infraumbilical incision over the precluding abscess. The skin incision was taken with a skin and was carefully deepened bluntly into the subcutaneous tissues, though abscess cavity was easily encountered and pus was drained out. There was multi- loculation of the pus in the small subcutaneous pockets and all of these were carefully opened up and drained out. The area was then irrigated with normal saline and hemostasis was confirmed. The cavity was then packed with quarter-inch iodoform strip gauze, followed by dry dressing over it. The patient was then extubated and was taken to the recovery unit in a stable condition. Sponge, needle, and instrument count correct at the end of the procedure. There were no intraoperative complications. MD ALEN Waite/MODL /[id number]
--- NOTE | 2019-04-06 19:00 | NUR ---
RECEIVED PATIENT IN BEDSIDE REPORT. PATIENT REPORTS PAIN 02/07, WILL ADMINISTER PAIN MEDS WHEN AVAILABLE. DRESSING TO L UPPER ARM IS C/D, BUT COMING LOOSE - REINFORCED WITH MICROFOAM. R AC 18G IV ASYMPTOMATIC, INTACT, AND PATENT. PATIENT REPORTS LAST BM WAS YESTERDAY. PATIENT HAS PASSED GAS SINCE THE PROCEDURE. BED LOCKED IN LOWEST POSITION, SIDE RAILS UPX2, CALL LIGHT IN REACH.
[2019-04-06] MEDS ORDERED: INSULIN GLARGINE 100 UNITS/ML VIAL SQ SCH (21:00)
--- NOTE | 2019-04-06 21:40 | NUR ---
PATIENT CALLED NURSE TO ROOM, DRESSING FALLING OFF ARM. REMOVED OUTER DRESSING AND GAUZE, KEPT PACKING IN PLACE. NO NEW DRAINAGE NOTED. ADDED NEW GAUZE OVER TOP, COVERED WITH MICROFOAM, WRAPPED LOOSELY WITH KERLIX TO KEEP DRESSING IN PLACE. TOLD PATIENT TO TRY NOT TO BEND ARM TO ALLOW DRESSING TO STAY. PATIENT VERBALIZED UNDERSTANDING. WILL MONITOR CLOSELY.
[2019-04-07] VITALS (8 sets, daily range): BP systolic 125–159; BP diastolic 65–80
[2019-04-07] MEDS: VANCOMYCIN HCL 1.5 GM in SODIUM CHLORIDE 0.9% 250ML 300 ML IV SCH ×3 (00:26→22:38)
[2019-04-07] MEDS: HYDROCODONE/APAP 5MG-325MG TAB PO PRN ×4 (02:22→20:05)
[2019-04-07] MEDS: ALBUTEROL/IPRATROPIUM 3 ML NEB NEB SCH ×4 (02:40→20:20)
[2019-04-07] MEDS: ONDANSETRON HCL INJ 2MG/ML 2ML 2 MG/ML VIAL IV PRN ×2 (03:53→07:55)
[2019-04-07] MEDS: HYDROMORPHONE 1MG/1ML INJ IV PRN ×2 (03:53→07:55)
[2019-04-07] MEDS: PIPER-TAZ 3.375 GM 50 ML IV SCH ×3 (05:51→18:34)
--- NOTE | 2019-04-07 07:05 | NUR ---
RECEIVED PATIENT RESTING IN BED NO SIGNS OF DISTRESS. BED LOW, WHEELS LOCKED, SIDE RAILS X2. CALL LIGHT IN REACH WILL CONTINUE TO MONITOR.
[2019-04-07] MEDS: FENOFIBRATE 160 MG TABLET PO SCH (07:39)
[2019-04-07] MEDS: PREGABALIN 75 MG CAP PO SCH ×2 (07:55→21:04)
[2019-04-07] MEDS: IBUPROFEN 600 MG TAB PO SCH ×3 (07:55→21:04)
[2019-04-07] MEDS: COLCHICINE 0.6 MG TAB PO SCH (07:55)
[2019-04-07] MEDS: ASPIRIN 81 MG ENTERIC COATED PO SCH (07:55)
[2019-04-07] MEDS: INSULIN ASPART 70/30 100 UNITS/ML VIAL SC SCH ×3 (07:56→17:00)
[2019-04-07] MEDS: INSULIN LISPRO 100 UNIT/1 ML 3ML VIAL SQ SCH ×4 (07:56→21:13)
--- NOTE | 2019-04-07 09:38 | NUR ---
PATIENT A/O X3, EVEN RESPIRATIONS ON 2LNC. BOWEL SOUNDS ACTIVE. LEFT UPPER ARM DRESSING CLEAN, DRY, AND INTACT. NO DRAINAGE. DILAUDID GIVEN THIS AM FOR PAIN 10/10 TO LEFT ARM. RIGHT AC 18 GAUGE SL. IV INTACT AND PATENT. NO EDEMA. PATIENT AMBULATES INDEPENDENTLY. LAST BM YESTERDAY. VITAL SIGNS STABLE. CALL LIGHT IN REACH WILL CONTINUE TO MONITOR PATIENT
--- NOTE | 2019-04-07 11:21 | NUR ---
DR. LITTLE AT BEDSIDE, REMOVED SOME PACKING FROM LEFT UPPER ARM WOUND AND REINFORCED DRESSING.
--- NOTE | 2019-04-07 12:30 | NUR ---
RIGHT AC IV LEAKING. REMOVED IV, CATHETER TIP INTACT AND PRESSURE DRESSING APPLIED.
--- NOTE | 2019-04-07 13:00 | NUR ---
NEW IV TO RIGHT FA 20 GAUGE. IV INTACT AND PATENT.
--- NOTE | 2019-04-07 19:45 | NUR ---
Received patient from day nurse, patient is alert and oriented x 3. safety and fall precautions maintained as per hospital protocol: bed in lowest position and locked, needed items beside bed and call bed placed close to patient.
--- NOTE | 2019-04-07 20:50 | NUR ---
Paged Dr. Flores regarding patient request for Ambien. New orders received.
[2019-04-07] MEDS ORDERED: ZOLPIDEM TARTRATE 10 MG TAB PO ONE (21:00)
[2019-04-07] MEDS ORDERED: INSULIN GLARGINE 100 UNITS/ML VIAL SQ SCH (21:00)
[2019-04-08] VITALS: BP 136/82
[2019-04-08] MEDS: PIPER-TAZ 3.375 GM 50 ML IV SCH ×2 (00:15→06:24)
--- NOTE | 2019-04-08 00:19 | Progress Note ---
DATE: 04/07/2019 Cardiology Progress Note SUBJECTIVE: No major events overnight. Chest pain continues to improve. OBJECTIVE: VITAL SIGNS: Temperature afebrile, pulse 86, respiratory rate 17, blood pressure 156/77, and saturating 93% on 2 L nasal cannula. GENERAL: Middle-aged man in no acute distress. CARDIOVASCULAR: Regular rate and rhythm. No murmurs, rubs, or gallops. LUNGS: Clear to auscultation bilaterally. ABDOMEN: Soft, nontender, and nondistended. NEURO AND PSYCH: Alert and oriented to person, place, and time. Normal affect. INPATIENT MEDICATIONS: Reviewed. LABORATORY DATA: Reviewed. Telemetry data reviewed, shows normal sinus rhythm. ASSESSMENT: 1. Precordial pain. 2. Suspect pericarditis. 3. Obesity. 4. Tobacco use. 5. Hypertension. 6. Diabetes. 7. Abscess left upper extremity, status post drainage. 8. Hyperlipidemia. RECOMMENDATIONS: He has already been ruled out for acute [place]. Echo shows normal left ventricular ejection fraction. Chest pain is very atypical and more consistent with pericarditis or pleurisy, this continues to improve with anti-inflammatories. The patient is okay to be discharged from cardiovascular standpoint on regimen of anti-inflammatory medications including colchicine 0.6 mg b.i.d. and ibuprofen 800 mg t.i.d. He will follow up in clinic 2 weeks post discharge, and may need a stress test as an outpatient. Thank you for this consult. We will continue to follow. MD SETH Salcedo/LE /[id number]
[2019-04-08] MEDS: HYDROCODONE/APAP 5MG-325MG TAB PO PRN ×2 (01:42→06:16)
[2019-04-08] MEDS: ALBUTEROL/IPRATROPIUM 3 ML NEB NEB SCH ×2 (02:00→07:35)
[2019-04-08 04:00] VITALS: BP 163/77
--- NOTE | 2019-04-08 07:05 | NUR ---
RECEIVED PATIENT AWAKE IN RECLINER, NO SIGNS OF DISTRESS. WHEELS LOCKED, CALL LIGHT IN REACH WILL CONTINUE TO MONITOR PATIENT.
--- NOTE | 2019-04-08 07:14 | NUR ---
patient endorsed to next shift for continuity of care.
[2019-04-08] MEDS: INSULIN LISPRO 100 UNIT/1 ML 3ML VIAL SQ SCH ×2 (07:30→11:30)
[2019-04-08] MEDS: INSULIN ASPART 70/30 100 UNITS/ML VIAL SC SCH ×2 (07:30→11:30)
[2019-04-08] MEDS: FENOFIBRATE 160 MG TABLET PO SCH (07:34)
[2019-04-08] MEDS: ASPIRIN 81 MG ENTERIC COATED PO SCH (08:37)
[2019-04-08] MEDS: IBUPROFEN 600 MG TAB PO SCH (08:37)
[2019-04-08] MEDS: PREGABALIN 75 MG CAP PO SCH (08:37)
[2019-04-08 08:38] VITALS: BP 160/77
--- NOTE | 2019-04-08 09:58 | NUR ---
PATIENT A/O X3, EVEN RESPIRATIONS ON RA. BOWEL SOUNDS ACTIVE. LEFT UPPER ARM DRESSING CLEAN, DRY, AND INTACT. NO DRAINAGE. RIGHT FA 20 GAUGE SL. IV INTACT AND PATENT. NO EDEMA. PATIENT AMBULATES INDEPENDENTLY. LAST BM YESTERDAY. VITAL SIGNS STABLE. CALL LIGHT IN REACH WILL CONTINUE TO MONITOR PATIENT
[2019-04-08] MEDS: VANCOMYCIN HCL 1.5 GM in SODIUM CHLORIDE 0.9% 250ML 300 ML IV SCH (10:49)
[2019-04-08] MEDS ORDERED: IBUPROFEN200 MG PO (10:55)
[2019-04-08] MEDS ORDERED: AUGMENTIN 875-1 EACH PO (11:28)
--- NOTE | 2019-04-08 11:30 | NUR ---
REMOVED PATIENTS IV, CATHETER TIP INTACT AND PRESSURE DRESSING APPLIED.
--- NOTE | 2019-04-08 11:53 | NUR ---
PATIENT DISCHARGED FROM FACILITY. PATIENT GATHERED ALL PERSONAL BELONGINGS, DISCHARGE INSTRUCTIONS, AND FOLLOW UP INFORMATION. LEFT UNIT IN WHEELCHAIR AND WENT HOME VIA PRIVATE AUTO. NO SIGNS OF DISTRESS WHEN LEAVING FACILITY.
--- NOTE | 2019-04-09 06:49 | Discharge Summary ---
FINAL DIAGNOSES: 1. Abscess on the left arm, status post incision and drainage, growing strep viridans and methicillin-sensitive Staphylococcus aureus. 2. Methicillin-sensitive Staphylococcus aureus. 3. Staph sepsis with one blood culture being positive. 4. Chest pain, which is improved. 5. Possible pericarditis, per Cardiology recommendation. 6. Diabetes. 7. Hypertension. 8. Obesity. ADMISSION HISTORY AND HOSPITAL COURSE: Mr. Day is a 53-year-old male who presented to the emergency room with severe chest pain, mildly pleuritic in nature. CTA of the chest was done, which did not show any PE. Cardiology ruled out [place]. They did an echocardiogram, showed small effusion. They diagnosed the patient with pericarditis. The patient was started on ibuprofen and colchicine. Also, ID was consulted. The patient underwent incision and drainage of the abscess, which was in the left arm. Fever resolved. Antibiotics were continued. The patient improved with IV antibiotics and Dr. Rod cleared the patient for discharge. Patient will continue the home medications for diabetes. Dr. Floyd was following the patient for diabetes. He will follow up with his Primary Care Physician. He will follow up for lung nodules with me. Discharge medication list reviewed. MD IVAN Meyer/LE /[id number]
== END 2019-04-08 11:53 | disposition home or self-care (01) | DRG 854 ==
LOC: ER 06:28 → ERHOLD 10:21 → MED/SURG 14:14 → OBSVTOIN 04-05 13:47
PROVIDERS: ADMIT Internal Medicine; ATTEND Internal Medicine
PROC: 0H9EXZX Drainage of Left Lower Arm Skin, External Approach, Diagnostic (ICD-10-PCS; principal; 2019-04-05)
PROC: 0J9H0ZZ Drainage of Left Lower Arm Subcutaneous Tissue and Fascia, Open Approach (ICD-10-PCS; 2019-04-06)
DX: A41.02 Sepsis due to Methicillin resistant Staphylococcus aureus (principal); I30.9 Acute pericarditis, unspecified; L03.114 Cellulitis of left upper limb; L02.414 Cutaneous abscess of left upper limb; Z68.41 Body mass index [BMI] 40.0-44.9, adult; R07.81 Pleurodynia; E66.01 Morbid (severe) obesity due to excess calories; F17.210 Nicotine dependence, cigarettes, uncomplicated; I10 Essential (primary) hypertension; E78.5 Hyperlipidemia, unspecified; E11.42 Type 2 diabetes mellitus with diabetic polyneuropathy; J44.9 Chronic obstructive pulmonary disease, unspecified; E11.65 Type 2 diabetes mellitus with hyperglycemia; R07.2 Precordial pain; B95.61 Methicillin susceptible Staphylococcus aureus infection as the cause of diseases classified elsewhere; B95.4 Other streptococcus as the cause of diseases classified elsewhere; Z79.4 Long term (current) use of insulin
CPT/HCPCS: 36415; 71046; 71260; 80048; 80053; 80061; 80202; 81001; 82550; 82553; 82948; 83036; 84439; 84443; 84484; 85025; 85379; 85610; 85651; 85730; 86140; 86663; 86664; 86665; 87040; 87071; 87186; 87205; 93005; 93306; 93307; 94640; 96372; 99285; G0378; J1170; J1815; J1885; J2001; J2270; J2405; J2543; J3010; J3370; J7050; Q9967